=== PATIENT | male | born 1995 | race Caucasian/White ===

== ENCOUNTER 2019-01-04 15:29 | Emergency (ER) | payer OTHER ==
[2019-01-04 15:53] VITALS: BP 139/66
--- NOTE | 2019-01-04 16:06 | UC ---
Dental HPI - HPI Summary HPI Summary: Pt presents with c/o dental pain s/p having dental work yesterday and earlier today. Pt states that he had a cavity filled yesterday morning and then another today. During today's dental visit, the dentist told the pt that the cavity was deeper than he thought and that he would need a root canal. The pt then stated that the dentist continued to "drill" in the affected tooth and then filled it with temporary filling. Pt reports that the tooth and surrounding area is very tender. Pt has taken ibuprofen with no improvement in pain. - History of Current Complaint Chief Complaint: UCDentalProblem Stated Complaint: DENTAL Time Seen by Provider: 01/04/19 15:42 Hx Obtained From: Patient Onset/Duration: Sudden Onset - post filling today, Still Present Severity: Moderate Pain Intensity: 9 Aggravating Factor(s): Other - pt has not tried to eat anything post procedure Alleviating Factor(s): Nothing Related History: Previous Dental Care on Same Tooth - Allergies/Home Medications Allergies/Adverse Reactions: Allergies Allergy/AdvReac Type Severity Reaction Status Date / Time seasonal Allergy Sneezing Uncoded 01/04/19 15:53 Home Medications: Home Medications Ibuprofen TAB* [Motrin TAB* 600 MG] 600 mg PO ONCE PRN 01/04/19 [History Confirmed 01/04/19] PMH/Surg Hx/FS Hx/Imm Hx Previously Healthy: Yes - Surgical History Surgical History: Yes Surgery Procedure, Year, and Place: wisdom teeth - Family History Known Family History: Positive: Cardiac Disease - Social History Occupation: Student Lives: With Family Alcohol Use: Occasionally Alcohol Amount: 1/ month Substance Use Type: None Smoking Status (MU): Never Smoked Tobacco Have You Smoked in the Last Year: No - Immunization History Vaccination Up to Date: Yes Review of Systems All Other Systems Reviewed And Are Negative: Yes Constitutional: Positive: Negative Skin: Positive: Negative Eyes: Positive: Negative ENT: Positive: Dental Pain Respiratory: Positive: Negative Cardiovascular: Positive: Negative Gastrointestinal: Positive: Negative Genitourinary: Positive: Negative Motor: Positive: Negative Neurovascular: Positive: Negative Musculoskeletal: Positive: Negative Neurological: Positive: Negative Psychological: Positive: Negative Is Patient Immunocompromised?: No Physical Exam Triage Information Reviewed: Yes Appearance: Pain Distress Vital Signs: Initial Vital Signs Temp 98.1 F 01/04/19 15:47 Pulse 92 01/04/19 15:47 Resp 20 01/04/19 15:47 BP 139/66 01/04/19 15:47 Pulse Ox 100 01/04/19 15:47 Vital Signs Reviewed: Yes Eye Exam: Normal ENT: Positive: Hearing grossly normal Dental: Positive: Other: - right lower tooth, #29 or #30 with white filling noted. Pt states that it is painful. Neck exam: Normal Respiratory Exam: Normal Respiratory: Positive: No respiratory distress Musculoskeletal Exam: Normal Neurological Exam: Normal Psychological Exam: Normal Skin Exam: Normal Dental Complaint Course/Dx - Differential Dx/Diagnosis Differential Diagnosis/Dx: Dental Abscess, Dental Caries, Post Extraction Pain Provider Diagnosis: Pain, dental Discharge ED - Sign-Out/Discharge Documenting (check all that apply): Patient Departure All imaging exams completed and their final reports reviewed: No Studies - Discharge Plan Condition: Stable Disposition: HOME Prescriptions: traMADol TAB* [Ultram*] 50 mg PO Q8H PRN #15 tab MDD 3 tabs PRN Reason: Pain - Mild Patient Education Materials: Acute Dental Trauma (ED) Referrals: [facility] [place] [facility] [Outside] No Primary Care Phys,NOPCP [Primary Care Provider] - - Billing Disposition and Condition Condition: STABLE Disposition: Home
== END 2019-01-04 16:25 | disposition home or self-care (01) ==
LOC: UCCORT 15:29
DX: K08.89 Other specified disorders of teeth and supporting structures (principal); Z91.09 Other allergy status, other than to drugs and biological substances
CPT/HCPCS: 99202; G0463